=== PATIENT | female | born 1945 | race Caucasian/White ===

== ENCOUNTER 2020-03-14 19:24 | Emergency (ER) | payer MEDICARE, OTHER ==
[~2020-03-14] VITALS: Ht 160 cm; Wt 63.6 kg
[2020-03-14] MEDS ORDERED: IV NORMAL SALINE 1000ML BAG 1,000 ML IV ONE (20:00)
[2020-03-14] MEDS ORDERED: cefTRIAXone IV Push 1 GM VIAL. IVP ONE (20:00)
--- NOTE | 2020-03-14 20:05 | PHYS DOC ---
General Adult EDM: Chief Complaint: TOE PROBLEM HPI: HPI: Patient is a 74 year old female patient who [facility] with wounds to left toes. Patient reports she has had a lesion on the right side of her her right foot for a while, which had been scabbed and crusty, states she started to scratch her left toes with her right foot, as they were itching, and the crust helped it feel better. States since that time, she has noticed some wounds on her left second and third toe with some redness along the top of her foot. States no fever. States no pain. Does states she is a diabetic, had seen a oem sales manager several years ago for some nail removed, has not seen a oem sales manager for some time. She has not been taking medications for the lesion on her right foot (REYNA ADAMS APRN) Review of Systems: Review of Systems: Constitutional: Denies fever or chills. [] Respiratory: Denies cough or shortness of breath. [] Cardiovascular: Denies chest pain or edema. [] GI: Denies abdominal pain, nausea, vomiting, bloody stools or diarrhea. [] : Denies dysuria. [] Musculoskeletal: Denies back pain or joint pain. [] Integument: Reports abrasion to right side of right foot, lesions to left toes, for the past week [] Neurologic: Denies headache, sensory changes. [] Endocrine: Denies polyuria or polydipsia. [] Lymphatic: Denies swollen glands. [] Psychiatric: Denies depression or anxiety. [] (REYNA ADAMS APRN) Heart Score: Risk Factors: Risk Factors: DM, Current or recent (<one month) smoker, HTN, HLP, family history of CAD, obesity. Risk Scores: Score 0 - 3: 2.5% MACE over next 6 weeks - Discharge Home Score 4 - 6: 20.3% MACE over next 6 weeks - Admit for Clinical Observation Score 7 - 10: 72.7% MACE over next 6 weeks - Early Invasive Strategies (REYNA ADAMS APRN) Physical Exam: PE: Constitutional: Well developed, well nourished, no acute distress, non-toxic appearance. [] HENT: Normocephalic, atraumatic, nose normal. [] Eyes: PERRLA, EOMI, conjunctiva normal, no discharge. [] Neck: Normal range of motion, no tenderness, supple, no stridor. [] Cardiovascular:Heart rate regular rhythm, no murmur [] Lungs & Thorax: Bilateral breath sounds clear to auscultation [] Abdomen: Bowel sounds normal, soft, no tenderness, no masses, no pulsatile masses. [] Skin: Warm, dry, erythema noted to left distal foot surrounding second and third digits on superior aspect of foot extending proximally 2 cm proximal from lesions. 1.5 cm annular scabbed lesion to second digit, 4 mm erythematous lesion to third digit, left lateral aspect of the proximal area 3 cm x 6 cm crusted, nonerythematous, non-warm area. Noted to the distal second digit onychomycosis of nail, bilateral great toe nails absent. No additional onychomycosis noted to nails. Back: No tenderness, no CVA tenderness. [] Extremities: No tenderness, no cyanosis, no clubbing, ROM intact, no edema. Negative Homans sign [] Neurologic: Alert and oriented X 3, normal motor function, normal sensory function, no focal deficits noted. [] Psychologic: Affect normal, judgement normal, mood normal. [] (REYNA ADAMS APRN) EKG: EKG: [] (REYNA ADAMS APRN) Radiology/Procedures: Radiology/Procedures: [] (REYNA ADAMS APRN) Course & Med Decision Making: Course & Med Decision Making Pertinent Labs and Imaging studies reviewed. (See chart for details) [Reviewed results, noted hyperglycemia. No ketosis or concerns for DKA at this time. Provide fluids here, will provide small dose of insulin as well as dose antibiotics. Plan to recent prescription for antibiotics to continue at [facility], [facility] patient has had high blood sugars been 300- 500 ever since he had been a resident there, reports care providers are not concerned over this being patient blood sugar. Discussed concerns with family member however patient blood sugar remaining high, with recommendation to ensure that she is being managed either by primary care or provider who is visiting in the facility, or if nothing is being done about her blood sugar, to consider following up with an customer resource specialist. Family member in agreement with this, plan is to discuss this with staff and patient's primary care. Following insulin and fluids, patient blood sugar 252. (REYNA ADAMS APRN) Dragon Disclaimer: Dragon Disclaimer: This electronic medical record was generated, in whole or in part, using a voice recognition dictation system. (REYNA ADAMS APRN) Departure Departure Impression: Primary Impression: Cellulitis of second toe, right Additional Impressions: Cellulitis of third toe of right foot Hyperglycemia due to diabetes mellitus Disposition: HOME, SELF-CARE Condition: STABLE Patient Instructions: Cellulitis Additional Instructions: Take the prescription for the antibiotic as prescribed. Keep the wound clean and dry. If she continues to have discomfort, swelling, or any drainage, while on the antibiotics contact her primary care or return to the hospital. Make jama e she is wearing socks when she is up, and changing the socks each day. After the wound on her foot heals, she may want to consider following up with a oem sales manager to manage her nail fungus on that toe. When her provider does rounds at the facility next, make sure they are addressing her blood sugar, as a high blood sugar is not helping her wounds through their healing process, it is hindering wound healing. If the providers at the healthcare resort or her primary care are unable to manage her blood sugar, you may want to consider following up with an customer resource specialist, however he may want to discuss with patient's primary care prov ider first. Scripts Clindamycin Hcl (CLINDAMYCIN HCL) 300 Mg Capsule 300 MG PO TID for 10 Days, #30 CAP Prov: REYNA ADAMS APRN 03/14/20 Justicifation of Admission Dx: Justifications for Admission: Justification of Admission Dx: N/A (REYNA ADAMS APRN) Attending Signature Attending Signature I have reviewed the PA/FLOATING LABOR GANG SUPERVISOR's note and plan of care. I was available for consultation as needed during the patient's visit in the emergency department. I agree with the clinical impression, plan, and disposition. (TALIA VOSS DO) REYNA ADAMS APRN Mar 14, 2020 20:05 TALIA VOSS DO Mar 15, 2020 01:04
[2020-03-14 20:25] LABS: BASO % 0 % (0-3); EOS # 0.3 x10^3/uL (0.0-0.7); EOS % 4 % (0-3); HEMATOCRIT 34.7 % (36.0-47.0); HEMOGLOBIN 11.5 g/dL (12.0-15.5); LYMPH % 13 % (24-48); MEAN CORPUSCULAR HEMOGLOBIN 26 pg (25-35); MEAN CORPUSCULAR HGB CONC 33 g/dL (31-37); MEAN CORPUSCULAR VOLUME 78 fL (79-100); MONO # 0.8 x10^3/uL (0.0-1.1); MONO % 10 % (0-9); NEUT # 5.7 x10^3/uL (1.8-7.7); NEUT % 73 % (31-73); PLATELET COUNT 194 x10^3/uL (140-400); RED BLOOD COUNT 4.43 x10^6/uL (3.50-5.40); RED CELL DISTRIBUTION WIDTH 16.8 % (11.5-14.5); WHITE BLOOD COUNT 7.9 x10^3/uL (4.0-11.0)
[2020-03-14 20:38] LABS: CALCIUM 8.4 mg/dL (8.5-10.1); CREATININE 1.4 mg/dL (0.6-1.0); GFR 36.9; POTASSIUM 3.7 mmol/L (3.5-5.1)
[2020-03-14 20:44] LABS: ALBUMIN/GLOBULIN RATIO 0.8 (1.0-1.7); MAGNESIUM 1.8 mg/dL (1.8-2.4); TOTAL BILIRUBIN 0.4 mg/dL (0.2-1.0); TOTAL PROTEIN 6.9 g/dL (6.4-8.2)
[2020-03-14] MEDS ORDERED: CLINDAMYCIN 600MG PREMIX 50 ML IV ONE (21:45)
[2020-03-14] MEDS ORDERED: INSULIN REGULAR 100 UNIT/ML 3ML VIAL. IV ONE (21:45)
[2020-03-14 22:21] VITALS: BP 143/65
[2020-03-14] MEDS ORDERED: CLIN300C8 PO (22:44)
== END 2020-03-14 22:55 | disposition home or self-care (01) ==
LOC: ER 19:24
DX: L03.031 Cellulitis of right toe (principal); E11.65 Type 2 diabetes mellitus with hyperglycemia
CPT/HCPCS: 36415; 80053; 82010; 82962; 83605; 83735; 85025; 96361; 96365; 96375; 99285; J0696; J1815; J3490; J7030